=== PATIENT | male | born 1990 | race Caucasian/White ===

== ENCOUNTER 2018-03-21 16:35 | Emergency (ER) | payer SELFPAY ==
[2018-03-21] MEDS ORDERED: Lidocaine 2% EPI 1:200000 MPF*10-20 ML VIAL ONE (16:51)
[2018-03-21] MEDS ORDERED: Cephalexin CAP* 500 MG PO ONE (16:51)
[2018-03-21] MEDS ORDERED: Tetan/Diph/Pertus SYR(Tdap)* 0.5 ML SYR(BOOSTRIX) use SYR IM ONE (16:52)
--- NOTE | 2018-03-21 18:00 | ED ---
Orlando Pond Tiffany, scribed for Thony Francisco on 03/21/18 at 1657 . Laceration/Wound HPI - HPI Summary HPI Summary: 27 year old M presenting to [facility] complains of laceration to right thigh s/p hitting his right leg with a saw 30 minutes ago. The patient rates the pain 6/ 10 in severity. Symptoms aggravated by nothing. Symptoms alleviated by nothing. Patient is not up to date with his tetanus shot. - History of Current Complaint Stated Complaint: RT LEG LAC Hx Obtained From: Patient Onset/Duration: Sudden Onset - 30 minutes ago, Lasting Minutes - 30, Still Present Aggravating: Nothing Alleviating: Nothing Current Severity: Moderate Pain Intensity: 6 Pain Scale Used: 0-10 Numeric - Allergy/Home Medications Allergies/Adverse Reactions: Allergies Allergy/AdvReac Type Severity Reaction Status Date / Time No Known Allergies Allergy Verified 03/21/18 17:13 PMH/Surg Hx/FS Hx/Imm Hx Previously Healthy: Yes Endocrine/Hematology History: Denies: Hx Diabetes Respiratory History: Denies: Hx Asthma, Hx Chronic Obstructive Pulmonary Disease (COPD) Sensory History: Denies: Hx Deafness EENT History: Denies: Hx Deafness - Surgical History Surgery Procedure, Year, and Place: none Infectious Disease History: No Infectious Disease History: Denies: Traveled Outside the [place] in Last 30 Days - Family History Known Family History: Positive: Other - Reviewed and non-contributory Review of Systems Negative: Fever Positive: Other - laceration on right thigh All Other Systems Reviewed And Are Negative: Yes Physical Exam - Summary Physical Exam Summary: Appearance: Well appearing, no pain distress Skin: warm, dry, reflects adequate perfusion Head/face: normal Eyes: EOMI, JAMEEL ENT: normal Neck: supple, non-tender Respiratory: CTA, breath sounds present Cardiovascular: RRR, pulses symmetrical Abdomen: non-tender, soft Bowel: present Musculoskeletal: normal, strength/ROM intact Neuro: normal, sensory motor intact, A&Ox3 Skin: 5-cm laceration on right thigh Triage Information Reviewed: Yes Vital Signs On Initial Exam: Initial Vitals Temp Pulse Resp BP Pulse Ox 98.9 F 85 18 119/71 98 03/21/18 16:39 03/21/18 16:39 03/21/18 16:39 03/21/18 16:39 03/21/18 16:39 Vital Signs Reviewed: Yes Diagnostics - Vital Signs Vital Signs Temp Pulse Resp BP Pulse Ox 03/21/18 16:39 98.9 F 85 18 119/71 98 - Laboratory Lab Statement: Any lab studies that have been ordered have been reviewed, and results considered in the medical decision making process. Laceration Repair Course/Dx - Course Course Of Treatment: 27 year old M presenting to [facility] complains of laceration to right thigh s/p hitting his right leg with a saw 30 minutes ago. Patient will be signed out to YEE Esparza, for laceration repair and tetanus shot. - Clinical Impression Provider Diagnoses: Laceration of right thigh Discharge - Sign-Out/Discharge Documenting (check all that apply): Sign-Out Patient Signing out patient TO: Ramos Cason - for laceration repair and tetanus shot - Discharge Plan Referrals: No Primary Care Phys,NOPCP [Primary Care Provider] - The documentation as recorded by the Orlando gage Tiffany accurately reflects the service I personally performed and the decisions made by , Thony Francisco.
[2018-03-21 18:21] VITALS: BP 116/63
--- NOTE | 2018-03-21 18:24 | ED ---
Laceration/Wound HPI - HPI Summary HPI Summary: Patient is a 27-year-old male who presents emergency department for laceration to his right upper leg that occurred just prior to arrival. Patient states he was cutting wood with a saw when he accidentally cut his right leg. He has no past medical history. Unaware of his last tetanus immunization. Touching the affected area makes symptoms worse. Rest makes symptoms better. Symptoms are mild in severity. No other injuries were sustained. - History of Current Complaint Stated Complaint: RT LEG LAC Time Seen by Provider: 03/21/18 17:30 Hx Obtained From: Patient Onset/Duration: Sudden Onset - 30 minutes ago, Lasting Minutes - 30, Still Present Aggravating: Nothing Alleviating: Nothing Current Severity: Moderate Pain Intensity: 6 Pain Scale Used: 0-10 Numeric - Allergy/Home Medications Allergies/Adverse Reactions: Allergies Allergy/AdvReac Type Severity Reaction Status Date / Time No Known Allergies Allergy Verified 03/21/18 17:13 PMH/Surg Hx/FS Hx/Imm Hx Previously Healthy: Yes Endocrine/Hematology History: Denies: Hx Diabetes Respiratory History: Denies: Hx Asthma, Hx Chronic Obstructive Pulmonary Disease (COPD) Sensory History: Denies: Hx Deafness - Surgical History Surgery Procedure, Year, and Place: none - Immunization History Date of Tetanus Vaccine: unknown Infectious Disease History: No Infectious Disease History: Denies: Traveled Outside the [place] in Last 30 Days - Family History Known Family History: Positive: Other - Reviewed and non-contributory - Social History Alcohol Use: Weekly Substance Use Type: Reports: None Smoking Status (MU): Light Every Day Tobacco Smoker Review of Systems Positive: Fever Positive: Other - laceration on right thigh Negative: Weakness, Paresthesia, Numbness All Other Systems Reviewed And Are Negative: Yes Physical Exam - Summary Physical Exam Summary: Appearance: Well appearing, no pain distress Skin: warm, dry, reflects adequate perfusion Head/face: normal Eyes: EOMI, JAMEEL ENT: normal Neck: supple, non-tender Respiratory: CTA, breath sounds present Cardiovascular: RRR, pulses symmetrical Abdomen: non-tender, soft Bowel: present Musculoskeletal: normal, strength/ROM intact Neuro: normal, sensory motor intact, A&Ox3 Skin: 5-cm laceration on right thigh Triage Information Reviewed: Yes Vital Signs On Initial Exam: Initial Vitals Temp Pulse Resp BP Pulse Ox 98.9 F 85 18 119/71 98 03/21/18 16:39 06/27/18 16:39 03/21/18 16:39 03/21/18 16:39 03/21/18 16:39 Vital Signs Reviewed: Yes Appearance: Positive: Well-Appearing - Pt. lying in bed in NAD. S.O. present. Skin: Positive: Warm, Dry Head/Face: Positive: Normal Head/Face Inspection Eyes: Positive: Normal Neck: Positive: Supple Musculoskeletal: Positive: Other - Roughly 5 cm full thickness laceration with jagged edges noted diagonally along the anterior lateral aspect of the right mid thigh. Minimal active bleeding. No muscle or tendon laceration noted. Full range of motion of the extremity. Neurological: Positive: Normal, CN Intact II-III Psychiatric: Positive: Affect/Mood Appropriate Procedures - Laceration/Wound Repair 1 Location: lower extremity - right upper leg Description: Linear Anesthesia: Local, 1.0% Length, Depth and Shape: 5 cm, linear with jagged edges. Betadine Prep?: No - Hibiclens Laceration/Wound Explored: clean Closure: Multilayer Suture Type: Prolene - 8, 3-0, Chromic - 3, 4-0 Number of Sutures: 11 Diagnostics - Vital Signs Vital Signs Temp Pulse Resp BP Pulse Ox 03/21/18 16:39 98.9 F 85 18 119/71 98 - Laboratory Lab Statement: Any lab studies that have been ordered have been reviewed, and results considered in the medical decision making process. Laceration Repair Course/Dx - Course Course Of Treatment: Patient presenting to the ER for a right upper leg laceration. Tetanus is updated. Wound was extensively irrigated and cleaned and closed as above. Pt. was started on Keflex and prescription sent to pharmacy. Advised suture removal in 10-14 days. Keep the wound clean and dry. Ice and elevate intermittently. To take Tylenol or Motrin for pain as directed. To return to the ER for redness, swelling or drainage from wound site. Patient understands and agrees with plan. - Differential Dx Differental Diagnoses: Avulsion, Laceration, Puncture Wound - Clinical Impression Provider Diagnoses: Laceration of right thigh Discharge - Sign-Out/Discharge Documenting (check all that apply): Discharge/Admit/Transfer - Discharge Plan Condition: Good Disposition: HOME Prescriptions: Cephalexin CAP* [Keflex CAP*] 500 mg PO BID #20 cap Patient Education Materials: Care For Your Stitches (ED), Laceration (ED) Referrals: [facility] [place] [facility] [Outside] No Primary Care Phys,NOPCP [Primary Care Provider] - Additional Instructions: Suture removal in 10-14 days Keep wound clean and dry Ice and elevate intermittently Take antibiotic as directed Tylenol or Motrin for pain as directed No swimming until stitches are removed Return to ER for redness, swelling or drainage from wound site - Billing Disposition and Condition Condition: GOOD Disposition: Home
== END 2018-03-21 18:20 | disposition home or self-care (01) ==
LOC: ED 16:35
DX: S71.111A Laceration without foreign body, right thigh, initial encounter (principal); W29.3XXA Contact with powered garden and outdoor hand tools and machinery, initial encounter; Y92.9 Unspecified place or not applicable; F17.210 Nicotine dependence, cigarettes, uncomplicated; R50.9 Fever, unspecified
CPT/HCPCS: 12002; 90715; 96372; 99282; A9270-GY